=== PATIENT | male | born 1985 | race Caucasian/White ===

== ENCOUNTER 2023-03-03 16:22 | Emergency (ER) | payer BC ==
[2023-03-03 16:27] VITALS: BP 144/83; PULSE 78; RESP 20; TEMP 98.2
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
[2023-03-03] MEDS ORDERED: DIPH,PERTUS(ACELL)TETVAC-LF 0.5 ML VIAL IM ONE (16:44)
[2023-03-03] MEDS ORDERED: LIDOCAINE 1% INJ 10MG/ML (20 ML MDV) SQ ONE (17:15)
--- NOTE | 2023-03-03 17:29 | XR ---
EXAMINATION TYPE: XR chest 1V portable DATE OF EXAM: 03/03/2023 COMPARISON: NONE HISTORY: Chest pain TECHNIQUE: Single frontal view of the chest is obtained. FINDINGS: There is no focal air space opacity, pleural effusion, or pneumothorax seen. Cardiomegaly without evidence for congestive failure. Postoperative changes lower cervical spine. The osseous structures are intact. IMPRESSION: 1. No acute process.
--- NOTE | 2023-03-03 17:31 | XR ---
EXAMINATION TYPE: XR wrist complete RT, XR hand complete RT DATE OF EXAM: 03/03/2023 CLINICAL HISTORY: pain TECHNIQUE: Frontal, lateral and oblique images of the right wrist and hand are obtained. COMPARISON: None. FINDINGS: Scaphoid irregularity and lucency may reflect fracture. The joint spaces appear within normal limits . There is soft tissue laceration with multiple radiopaque foreign bodies noted about the palmar aspe ct of the right hand extending between the first and third digits. IMPRESSION: 1. I cannot exclude scaphoid fracture. 2. Soft tissue laceration with radiopaque foreign bodies.
--- NOTE | 2023-03-03 17:32 | XR ---
EXAMINATION TYPE: XR forearm LT DATE OF EXAM: 03/03/2023 CLINICAL HISTORY: pain TECHNIQUE: Frontal and lateral images of the left forearm are obtained. COMPARISON: None. FINDINGS: There is no acute fracture/dislocation evident. The joint spaces appear within normal limi ts. The overlying soft tissue appears unremarkable. IMPRESSION: There is no acute fracture or dislocation. ICD 10 NO FRACTURE, INITIAL EVALUATION
== END 2023-03-03 18:11 | disposition home or self-care (01) ==
LOC: EC 16:22
DX: S61.411A Laceration without foreign body of right hand, initial encounter (principal); S50.812A Abrasion of left forearm, initial encounter; S60.512A Abrasion of left hand, initial encounter; Z23 Encounter for immunization; V29.99XA Rider (driver) (passenger) of other motorcycle injured in unspecified traffic accident, initial encounter; Y92.410 Unspecified street and highway as the place of occurrence of the external cause
CPT/HCPCS: 73090; 73110; 73130; 71045; 90715; 12002; 99284; 90471; J2001